=== PATIENT | male | born 1950 | race Caucasian/White ===

== ENCOUNTER 2024-04-30 09:12 | Outpatient (AMB) | payer OTHER, MEDICARE, BC, SELFPAY ==
--- NOTE | 2024-04-30 09:23 | MHC.OFFVIS ---
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 Accompanied by: Self / Same As Patient Allergies metoprolol Allergy (Mild, Verified 04/30/24 09:30) tremors Medication List - Last Reconciled 04/30/24 by Moraima Pickett MD amlodipine 10 mg PO DAILY aspirin (Adult Low Dose Aspirin) 81 mg PO DAILY atorvastatin 10 mg PO DAILY fexofenadine 180 mg PO DAILY lisinopril 40 mg PO DAILY metformin ER 1,000 mg PO BID montelukast 10 mg PO DAILY Do you need a note to return to daycare/school/sports/work: No HPI Comments Details: 74y/o Right handed male comes for evaluation of right hand tremors.It started about 4-5 years ago and was mild and intermittent but now he feels his tremors have worsened and lower chin tremors.the tremors are mostly with action and posture . He denies any difficulty with fine motor activities. No voice changes, has occasional nighttime drooling.No change in handwriting, no problems with dressing showering, using utensils. Gait- mild off balance. No recent falls. No constipation. sleep- normal.no nightmares. Mood- mild depression. He has h/o exposure to Agent [place] He reports short term memory issues. [facility] Medical History Coarse tremors Arthritis Acute asthma Tremors of nervous system Memory loss High cholesterol HTN (hypertension) Diabetes Cognitive impairment Surgical History History of hip replacement History of heart bypass surgery Family History Mother Lymphoma Father Lung cancer Brother Colon cancer Sister HTN (hypertension) Asthma Physical Exam Vital Signs: Last Vital Signs BP 100/60 04/30/24 09:39 BMI result Body Mass Index 32.0 Const General: cooperative, healthy appearing and comfortable Nutritional Appearance: average body habitus Orientation/consciousness: patient oriented x3 Eyes Pupils: Equal, round and reactive pupils present Neuro Other: Right UE postural and some action tremors. Nemesio decreased fine finger movements Normal tone Moderately decreased facial expression gait - mild stop, decreased arm swing on the left General: patient oriented x3, tone normal, moves all extremities and no focal motor deficits Cranial nerves: Yes Facial sensation intact/muscles of mastication intact, Yes Equal, round and reactive pupils present, Yes Bilaterally intact EOM present, Yes Nystagmus not present, Yes Normal facial strength present, Yes Midline tongue present and Yes Symmetric palate elevation present Cognition (Neuro): normal cognition Gait exam (Neuro): Normal gait present Motor exam (neuro): 5/5 motor strength present throughout and Normal motor muscle tone present throughout Deep tendon reflexes (DTR's): Right triceps reflex intensity grade: 1+, Left triceps reflex intensity grade: 1+, Rt Biceps (C5, C6): 1+, Left biceps reflex intensity grade: 1+, Right brachioradialis reflex intensity grade: 1+, Left brachioradialis reflex intensity grade: 1+, Right patellar reflex intensity grade: 1+ and Left patellar reflex intensity grade: 1+ Coordination: [id number] test normal Orientation What is the (year) (season) (date) (day) (month)?: year, season, date, day and month Where are we (state) (county) (town or city) (hospital) (floor)?: state, county, town or city, hospital/clinic and floor Registration Name of 3 unrelated objects clearly and slowly, then ask patient to repeat all 3 of them. (1st repeat determines score. Make sure they can repeat all three): object 1, object 2 and object 3 Attention & Calculation (CHOOSE ONE) Spell WORLD backwards (DLROW): 5 letters Recall Ask patient to repeat the 3 items from question #3.: object 1 Language Show patient a wristwatch & ask what it is. Repeat for pencil.: watch and pencil Ask the patient to repeat the phrase 'No ifs, ands, or buts' after you.: correct Ask the patient to 'take a piece of paper with their right hand' 'fold paper in half' 'place paper on floor': take paper in right hand, fold paper in half and place paper on floor Print the sentence 'CLOSE YOUR EYES' on a piece. If patient actually closes eyes then score.: followed written direction Give patient a blank piece of paper & ask to write a sentence. Score if it contains a noun & verb.: sentence contains subject and verb Ask patient to copy figure of intersecting pentagons exactly. Score if all 10 angles & 2 intersects are included.: all 10 angles present & 2 are intersected Score Score: 28 Assessment & Plan Assessment & Plan (1) Coarse tremors: Comment: ? parkinsons ? agent orange exposure Code(s): G25.2 - Other specified forms of tremor Category: Medical (2) Cognitive impairment: Comment: he did well on MMSE Code(s): R41.89 - Other symptoms and signs involving cognitive functions and awareness Category: Medical Plan MRI brain report from [facility] for review I will check his TSH VIt B 12 ESR to r/o reverisble causes of cognitive impairment Will consider BRENNAN scan Orders: Orders TSH reflex Free T4 Today R41.89 - Other symptoms and signs involving cognitive functions and awareness Vitamin B12 and Folate Today R41.89 - Other symptoms and signs involving cognitive functions and awareness Erythrocyte Sedimentation Rate Today R41.89 - Other symptoms and signs involving cognitive functions and awareness Medications: New losartan 100 mg PO DAILY ezetimibe 10 mg PO DAILY Coding Level of Care Code New Pt Level 4 (70407) Complex EM visit Add On G2211 Diagnoses Coarse tremors G25.2 Cognitive impairment R41.89
[2024-04-30 09:39] VITALS: BP 100/60; BMI 32.0
== END 2024-04-30 10:14 | disposition home or self-care (01) ==
PROVIDERS: PCP Internal Medicine; Visit Provider Psychiatry & Neurology Neurology
DX: G25.2 Other specified forms of tremor (principal); R41.89 Other symptoms and signs involving cognitive functions and awareness
CPT/HCPCS: 99204; G2211

== ENCOUNTER → 2024-04-30 09:12 | Outpatient (BNVA) | payer OTHER, MEDICARE, BC, SELFPAY | PROVIDERS: PCP Internal Medicine; Visit Provider Psychiatry & Neurology Neurology | DX: G25.2 Other specified forms of tremor (principal); R41.89 Other symptoms and signs involving cognitive functions and awareness | CPT/HCPCS: 99202 ==

== ENCOUNTER 2024-08-31 08:15 | Outpatient (AMB) | payer OTHER, MEDICARE, BC, SELFPAY ==
--- NOTE | 2024-08-31 08:17 | A.OFFVIS_ITS ---
Vital Signs 08/31/24 08:22 Height 5 ft 4 in Weight 168 lb BMI 28.8 BP 120/70 Blood Pressure Location Rt brachial Position Sitting Pulse 54 Pulse Source Pulse Oximeter Pulse Oximetry (%) 96 Oxygen Delivery Method Room Air Intake Visit Reasons: Follow Up 4mo Intake Note: Patient presents for follow up labs done 08/24/2024. MRI requested from 09/14/24 scanned Allergies metoprolol Allergy (Mild, Verified 08/31/24 08:24) tremors HPI Comments Details: 74y/o Right handed male comes for follow up right hand tremors and cognitive imapirment . MRI brain from [facility] was reviewed- showed mild white matter changes and atrophy TSH Vit B 12 were normal No change in tremors Cognition is mildly worse. History form last visit-.It started about 4-5 years ago and was mild and intermittent but now he feels his tremors have worsened and lower chin tremors.the tremors are mostly with action and posture . He denies any difficulty with fine motor activities. No voice changes, has occasional nighttime drooling.No change in handwriting, no problems with dressing showering, using utensils. Gait- mild off balance. No recent falls. No constipation. sleep- normal.no nightmares. Mood- mild depression. He has h/o exposure to Agent [place] He reports short term memory issues. [facility] Medical History Coarse tremors Arthritis Acute asthma Tremors of nervous system Memory loss High cholesterol HTN (hypertension) Diabetes Cognitive impairment Surgical History History of hip replacement History of heart bypass surgery Family History Mother Lymphoma Father Lung cancer Brother Colon cancer Sister HTN (hypertension) Asthma Physical Exam Vital Signs: Last Vital Signs Pulse 54 08/31/24 08:22 BP 120/70 08/31/24 08:22 Pulse Ox 96 08/31/24 08:22 Oxygen Delivery Method Room Air 08/31/24 08:22 BMI result Body Mass Index 28.8 Const General: cooperative, healthy appearing and comfortable Nutritional Appearance: average body habitus Orientation/consciousness: patient oriented x3 Neuro Other: Right UE postural and some action tremors. Nemesio decreased fine finger movements Normal tone Moderately decreased facial expression gait - mild stop, decreased arm swing on the left General: patient oriented x3, tone normal, moves all extremities and no focal motor deficits Cognition (Neuro): normal cognition Gait exam (Neuro): Normal gait present Motor exam (neuro): 5/5 motor strength present throughout and Normal motor muscle tone present throughout Coordination: [id number]-qo-dzhi test normal Assessment & Plan Assessment & Plan (1) Coarse tremors: Comment: ? parkinsons ? agent orange exposure Code(s): G25.2 - Other specified forms of tremor Category: Medical (2) Cognitive impairment: Comment: he did well on MMSE Code(s): R41.89 - Other symptoms and signs involving cognitive functions and awareness Category: Medical Plan Reviewed MRI and labs I will order BRENNAN scan for further evaluation Orders: Orders DaTscan Today G25.2 - Other specified forms of tremor Coding Level of Care Code Est Pt Level 4 (84987) Diagnoses Coarse tremors G25.2 Cognitive impairment R41.89
[2024-08-31 08:22] VITALS: BP 120/70; PULSE 54; O2SAT 96; BMI 28.8
--- OUTSIDE RECORDS SUMMARY | 2024-08-31 08:35 | XMS_ITS | Data Portability ---
Author Organization [place] - [facility], Allergy Address [address] [address] Assessment Encounter Date Assessment Date Assessment LastModified by Organization Details LastModified Time 01/17/2024 01/17/2024 74-year-old male with history of allergic rhinitis treated with immunotherapy presents for evaluation of postnasal drip. On exam, septum is deviated to the left and turbinates are hypertrophied. No purulence was noted. Recommended trial of azelastine in addition to Flonase and antihistamines. He may discontinue azelastine after 6 weeks if no improvement in symptoms. May follow-up as needed or sooner if symptoms persist or worsen with consideration of CT sinus. [email or web address] Not available 01/17/2024 12:24:14 Plan of Treatment Reminders Order Date Submit Date Provider Last Modified By Organization Details Last Modified Time Details Appointments None recorded. Lab None recorded. Referral None recorded. Procedures None recorded. Surgeries None recorded. Imaging None recorded. Medication Orders azelastine 137 mcg (0.1 %) nasal spray 2023 024 [facility] #[id number], [address] [place], [address], 12:24:47 Patient TargetsNo targets recorded. Patient InstructionsNo instructions recorded. Reason for Referral None Reported. Results Created Date Observation Date Name Description Value Unit Range Abnormal Flag Note LastModifiedBy Organization Detail LastModifiedTime 01/08/2006/11/2023 imagi ng/di agnos tic resul t No observ ation record ed. [email or web address] Not Available 03:22:35 01/08/2006/12/2023 imagi ng/di agnos tic resul t No observ ation record ed. [email or web address] Not Available 03:22:40 Result Notes None recorded. Problems Name Problem SNOMED Code Status Onset Date Resolution Date Notes Provider Name and Address Organization Details Recorded Time Bleeding from nose 872232977 Active 2023 [facility] ; Note: Date Diagnosed : 08/30/2023 3:05 PM (R04.0) Not Available [facility] 02:51:50 Deviated nasal septum 136089446 Active 2023 Deviated nasal septum; Note: Date Diagnosed : 09/20/2023 3:43 PM (J34.2) Not Available [facility] 02:51:56 Allergic rhinitis 04360104 Active 2023 YUE HUTCHINS PA-C [address] [place] [address],[place] [address], [place], [phone] , [facility] 4 12:22:59 Chronic rhinitis 47701804 Active 2023 YUE HUTCHINS PA-C [address] [place] [address],[place] [address], [place], [phone] , [facility] 4 12:23:08 Hypertroph y of nasal turbinates 49744475 Active 2023 YO NAVARRO MD [address] [place] [address],[place] [address], [place], [id number] , [facility] 4 13:20:48 Problem Notes None recorded. Procedures Surgical History None recorded. Imaging Results Imaging Date Name Status LastModified by Organiz ation Details LastModified Time 06/11/2023 imaging/diag nostic result completed Information not available 01/08/2024 03:22:35 06/12/2023 imaging/diag nostic result completed Information not available 01/08/2024 03:22:40 Procedure Notes None recorded. Medical Equipment None Reported. Allergies Allergen ID Allergen Name Allergen Category Reaction Reaction Severity Criticality Documentation Date Start Date Code Code System Note Provider Name and Address Organization Details Recorded Time 312142 propoxyph jaime hydrochlo ride medicatio n other Not available Not available 12/20/2023 63164 RxNorm React ion: Unkno wn; Not Available [facility] 4 00:37:43 Medications Name Sig Start Date Stop Date Status Note LastModified by Organization Details LastModified Time amoxicillin 500 mg capsule TAKE 4 CAPSULES 1 HOUR PRIOR TO DENTAL APPT 01/16 completed Not Available Not Available Not Available atorvastati n 10 mg tablet TAKE 1 TABLET BY MOUTH EVERYDAY AT BEDTIME active Not Available Not Available No t Available ibuprofen 800 mg tablet TAKE 1 TABLET BY MOUTH EVERY 8 HOURS DIRECTED 01/16 completed Not Available Not Available Not Available lisinopril 20 mg tablet TAKE 1 TABLET BY MOUTH EVERY DAY 01/16 completed Not Available Not Available Not Available prednisone 20 mg tablet TAKE ONE PILL ONCE DAILY FOR 10 DAYS WITH FOOD. NO NSAID. 01/16 completed Not Available Not Available Not Available amlodipine 5 mg tablet TAKE 1 TABLET BY MOUTH EVERYDAY AT BEDTIME active Not Available Not Available No t Available amoxicillin 875 mg tablet TAKE 1 TABLET BY MOUTH TWICE A DAY UNTIL FINISHED 01/16 completed Not Available Not Available Not Available [place] Saline nasal gel APPLY 4 TIMES A DAY IN EACH NOSTRIL active Not Available Not Available No t Available amlodipine 10 mg tablet TAKE 1 TABLET BY MOUTH AT BEDTIME 01/16 completed Not Available Not Available Not Available montelukast 10 mg tablet TAKE 1 TABLET BY MOUTH EVERY DAY active Not Available Not Available No t Available azelastine 137 mcg (0.1 %) nasal spray SPRAY 2 SPRAYS BY INTRANASA L ROUTE TWICE A DAY FOR 30 DAYS 2023 active Not Available Not Available Not Avai lable lisinopril 40 mg tablet 1 TABLET BY MOUTH DAILY,INS TR:DOSE INCEASE active Not Available Not Available No t Available fluticasone propionate 50 mcg/actuati on nasal spray,suspe nsion SPRAY 1 SPRAY INTO EACH NOSTRIL TWICE A DAY active Not Available Not Available No t Available metformin ER 500 mg tablet,exte nded release 24 hr TAKE 2 TABLETS BY MOUTH TWICE A DAY WITH MEALS *DOSE INCREASE* 01/16 completed Not Available Not Available Not Available ipratropium bromide 21 mcg (0.03 %) nasal spray SPRAY ONCE INTO EACH NOSTRIL 1-2 TIMES DAILY NEEDED 01/16 completed Not Available Not Available Not Available amoxicillin 875 mg-estrella javier clavulanate 125 mg tablet TAKE 1 TABLET BY MOUTH TWICE A DAY FOR 14 DAYS 01/16 completed Not Available Not Available Not Available ezetimibe 10 mg tablet TAKE 1 TABLET BY MOUTH EVERY DAY FOR 90 DAYS active Not Available Not Available No t Available budesonide 1 mg/2 mL suspension for nebulizatio n INHALE ONE VIAL TWICE PER DAY VIA NEBULIZER X 10 DAYS 01/16 completed Not Available Not Available Not Available GaviLyte-G 236 gram-22.74 gram-6.74 gram-5.86 gram oral solution PLEASE SEE ATTACHED FOR DETAILED DIRECTION S 01/16 completed Not Available Not Available Not Available aspirin 81 mg capsule Take 1 capsule every day by oral route. active Not Available Not Available No t Available Vitals Date Recorded Body height Body mass index (BMI) Body weight Provider Name and Address Organization Details Last Updated DateTime 01/17/2024 172.72 cm 24.6 kg/m2 92806.96 g Liset Reed [place] - [facility] 01/17/2024 10:51:45 Social History None recorded. Functional Status None recorded. Mental Status None recorded. Family History Nothing Reported. Medical History No medical history recorded. Past Encounters Encounter ID Performer Location Encounter Start Date Encounter Closed Date Diagnosis/Indication Diagnosis SNOMED-CT Code Diagnosis ICD10 Code Diagnosis Note [id number] YO NAVARRO MD [facility] [address] [address] 01/17/2024 10:36:00 01/17/2024 11:26:51 Deviated nasal septum 017082458 J34.2 Allergic rhinitis 591820 04 J30.89 Chronic rhinitis 9389835 6 J31.0 Hypertroph y of nasal turbinates 50123786 J34.3 Health Concerns Section Related Observation LastModified by Organization Detai ls LastModified Time None Recorded Concern Status LastModified by Organization Details LastModified Time None Recorded Advance Directives Directive None Recorded Payers Encounter Date Sequence Insurance Name Policy Number Policy Gallo Covered Member ID Gallo Member ID Guarantor Name 01/17/2024 1 [place] [employer] [id number] Jhony Deutsch [id number] Jhony B Get Notes Date Note Type Note Provider Name and Address Organization Details Recorded Time 01/17/2024 text/html 74-year-old male presents for evaluation of postnasal drip. Longstanding history of allergic rhinitis treated with immunotherapy. He reports allergy testing with Dr. Nugent about 6 months ago showed good improvement and restarting immunotherapy was not recommended. He has been using Flonase and an antihistamine with some improvement. Continues to have clear phlegm worse in the morning and resolves during the day. Has also tried Atrovent nasal spray without any improvement. Had a CT sinus in May which showed septal deviation and thickening of the ethmoid and maxillary sinuses. No further epistaxis since last visit in September. Denies facial pressure, headaches, fevers, nasal congestion, or discolored nasal drainage. YO GERMAN MD [address] [place] [address], [id number], [facility] - [facility] 01/17/2024 13:21:00
== END 2024-08-31 08:43 | disposition home or self-care (01) ==
LOC: HO.HSMS 08:16
PROVIDERS: PCP Internal Medicine Sports Medicine; Visit Provider Psychiatry & Neurology Neurology
DX: G25.2 Other specified forms of tremor (principal); R41.89 Other symptoms and signs involving cognitive functions and awareness
CPT/HCPCS: 99214

== ENCOUNTER → 2024-08-31 08:15 | Outpatient (BNVA) | payer OTHER, MEDICARE, BC, SELFPAY | PROVIDERS: PCP Internal Medicine Sports Medicine; Visit Provider Psychiatry & Neurology Neurology | DX: G25.2 Other specified forms of tremor (principal); R41.89 Other symptoms and signs involving cognitive functions and awareness | CPT/HCPCS: 99212 ==

== ENCOUNTER 2024-09-09 11:19 | Outpatient (REF) | payer OTHER, SELFPAY ==
[2024-09-10 17:43] LABS: Homocysteine 14.9 umol/L (<11.4)
[2024-09-12 06:03] LABS: Methylmalonic Acid 203 nmol/L (69-390)
== END 2024-09-09 11:20 | disposition home or self-care (01) ==
LOC: HO.HMGCLDS 11:19
PROVIDERS: Nurse Practitioner Family; PCP Internal Medicine Sports Medicine; Visit Provider Psychiatry & Neurology Neurology
DX: R79.89 Other specified abnormal findings of blood chemistry (principal); R41.89 Other symptoms and signs involving cognitive functions and awareness
CPT/HCPCS: 36415; 83090; 83921